=== PATIENT | female | born 1945 | race Caucasian/White ===

== ENCOUNTER 2019-03-03 10:22 | Inpatient (IN) | payer OTHER ==
[2019-03-03] VITALS (15 sets, daily range): BP systolic 44–249; BP diastolic 35–231; PULSE 0–99; RESP 0–29; Ht 154.9 cm; Wt 54.0 kg
[~2019-03-03] VITALS: Ht 154.9 cm; Wt 54.0 kg
[~2019-03-03 10:22] MED LIST: AMIODARONE 150 MG INJ ONE; CA CHLORIDE 10% 10 ML SYRINGE ONE; DOPamine-D5W 1.6 MG/ML 250 ML ONE; EPINEPHrine 0.1 MG/ML SYG ONE; POTASSIUM CHLORIDE 20 MEQ/SW 100 ML IVPB ONE
[2019-03-03] MEDS ORDERED: CEFEPIME 2GM/50 ML (PMX) 50 ML IVPB STA (10:24)
[2019-03-03] MEDS ORDERED: VANCOMYCIN 1 GM (PMX) 250 ML IVPB STA (10:24)
[2019-03-03] MEDS ORDERED: PROPOFOL 100 ML IV ONE (10:30)
[2019-03-03] MEDS ORDERED: FENTAnyl (DRIP) 1000 mcg/100mL 100 ML IV ONE (10:30)
[2019-03-03] MEDS ORDERED: NORepinephrine 8MG/250 ML (PMX 250 ML IV STA ×2 (10:31→11:48)
[2019-03-03] MEDS ORDERED: BUPR100T7 PO (10:47)
[2019-03-03] MEDS ORDERED: SODIUM CHLORIDE 0.9% 1L BAG IV* STA (10:47)
[2019-03-03] MEDS ORDERED: INSU100I12 SQ ×2 (10:48→11:12)
[2019-03-03] MEDS ORDERED: OMEP20CA16 PO (10:49)
[2019-03-03] MEDS ORDERED: LANT3I SC (10:49)
[2019-03-03] MEDS ORDERED: CHOL100062 PO (10:50)
[2019-03-03] MEDS ORDERED: VECURONIUM 100 MG in DEXTROSE 5% 100 ML IV ONE (10:50)
[2019-03-03] MEDS ORDERED: SODIUM CHLORIDE 0.9% 500 ML BAG IV* STA (10:50)
[2019-03-03] MEDS ORDERED: SODI1TAB2 PO (10:51)
[2019-03-03] MEDS ORDERED: SERT50TA6 PO (10:54)
[2019-03-03] MEDS ORDERED: METO5TAB2 PO ×2 (10:54)
[2019-03-03] MEDS ORDERED: GABA300C16 PO (10:54)
[2019-03-03] MEDS ORDERED: ASCO500C7 PO (10:55)
[2019-03-03] MEDS ORDERED: FER325 PO (10:55)
[2019-03-03] MEDS ORDERED: NA BICARBONATE 8.4% 50 ML SYG IV ONE ×2 (11:00)
[2019-03-03] MEDS ORDERED: AMIODARONE 900 MG in DEXTROSE 5% 482 ML IV SCH ×4 (11:00)
[2019-03-03] MEDS ORDERED: DOPamine-D5W 1.6 MG/ML 250 ML IV SCH (11:00)
[2019-03-03] MEDS ORDERED: VECURONIUM 10 MG VIAL IV ONE (11:00)
[2019-03-03] MEDS ORDERED: AMIODARONE 150MG/D5W BOLUS 100 ML IV ONE (11:00)
[2019-03-03] MEDS ORDERED: CALC-834 PO (11:01)
[2019-03-03] MEDS ORDERED: MULTI PO (11:01)
[2019-03-03] MEDS ORDERED: NS + KCL 40 MEQ 1,000 ML IV SCH (11:31)
[2019-03-03] MEDS ORDERED: D10/0.45% NACL + KCL 40 MEQ 1,000 ML IV SCH (11:31)
[2019-03-03] MEDS ORDERED: DEXTROSE 10%/0.45% NACL 1,000 ML IV SCH (11:31)
[2019-03-03] MEDS ORDERED: INSULIN REGULAR, HUMAN 100 UNIT/1 ML 3ML VIAL IVP STA (11:31)
[2019-03-03] MEDS ORDERED: NS + KCL 30 MEQ 1,000 ML IV SCH (11:31)
[2019-03-03] MEDS ORDERED: SOD CHLORIDE 0.9% 1,000 ML IV SCH (11:31)
[2019-03-03] MEDS ORDERED: ALBUTEROL 0.5% (NEB) 2.5 MG/0.5 ML AMP INH STA (11:31)
[2019-03-03] MEDS ORDERED: D10/0.45% NACL + KCL 30 MEQ 1,000 ML IV SCH (11:31)
[2019-03-03] MEDS ORDERED: LACTATED RINGER'S 540 ML IV ONE (12:00)
[2019-03-03] MEDS ORDERED: ASPIRIN 300 MG SUPP PR ONE (12:00)
[2019-03-03] MEDS ORDERED: INSULIN REGULAR, HUMAN 100 UNIT in SOD CHLORIDE 0.9% 100 ML IV SCH ×2 (12:00)
[2019-03-03] MEDS ORDERED: DEXTROSE 50% 50 ML SYRINGE IV PRN ×3 (12:00)
--- NOTE | 2019-03-03 12:39 | EN ---
Date/Time of Note Date/Time of Note DATE: 03/03/19 TIME: 12:38 Event Note Medicine Medicine Event Note patient has lost pulse 3 times. ROSC. Currently intubated on max dose dopamine and levophed. Her daughter is at bedside and HCP her son is on the phone. They state she previously had a DNR. We agreed we will not do CPR again. We will decide in coming hours about palliative extubation HAILEY KAY MD Mar 03, 2019 12:39
--- NOTE | 2019-03-03 14:39 | ERD ---
ER Documentation Chief Complaint Chief Complaint ROSC bib RA [id number] HPI Patient is a 73-year-old female with diabetes who presents in cardiac arrest. Please note the history and physical exam is limited as the patient is intubated and in full cardiac arrest at this point. The patient was brought in by ambulance. She had a cardiac arrest in the field and was down for an unknown amount of time. She had CPR performed prior to inside sales recruiter arrival. Paramedics worked on her for approximately 24 minutes and the patient was given epinephrine and bicarbonate. The patient lost pulses upon arrival to the emergency department. Upon review of old medical records this is the patient's first visit to the emergency department. ROS All systems reviewed and are negative except as per history of present illness. Medications Home Meds Reported Medications Insulin Lispro (Humalog Kwikpen U-100) 100 Unit/1 Ml Insuln.pen, 6 UNIT SQ BEFORE MEALS, EA BREAKFAST,LUNCH,DINNER. 03/03/19 Multivitamins* (Theragran*) 1 Tab Tab, 1 TAB PO DAILY, TAB 03/03/19 Calcium Carbonate/Vitamin D3 (Calcium 600 + Vit D 400 Tablet) 1 Each Tablet, 1 EACH PO BID, TAB 03/03/19 Ferrous Sulfate* (Ferrous Sulfate*) 325 Mg Tabec, 325 MG PO TID, TAB 03/03/19 Ascorbic Acid* (Vitamin C*) 500 Mg Capsule.sa, 500 MG PO DAILY, CAP 03/03/19 Sertraline Hcl* (Sertraline Hcl*) 50 Mg Tablet, 50 MG PO DAILY, #30 TAB 03/03/19 Gabapentin* (Gabapentin*) 300 Mg Capsule, 300 MG PO BID, #60 CAP 03/03/19 Metoclopramide Hcl* (Metoclopramide Hcl*) 5 Mg Tablet, 10 MG PO BEFOR LUNCH AND DINN, TAB 03/03/19 Metoclopramide Hcl* (Metoclopramide Hcl*) 5 Mg Tablet, 5 MG PO AC BREAKFAST BEDTIME PRN for NAUSEA AND OR VOMITING, TAB 03/03/19 Sodium Chloride* (Sodium Chloride*) 1 Gm Tablet, 1 GM PO TID, TAB 03/03/19 Cholecalciferol* (Vitamin D3*) 1,000 Unit Tablet, 2000 UNIT PO DAILY, TAB 03/03/19 Omeprazole* (Omeprazole*) 20 Mg Capsule.dr, 20 MG PO BID, #60 CAP 03/03/19 Insulin Glargine* (Lantus*) 100 Unit/Ml Soln, 20 UNIT SC Q24H, #1 VIAL 03/03/19 Insulin Lispro (Humalog Kwikpen U-100) 100 Unit/1 Ml Insuln.pen, UNIT SQ BEFORE MEALS for SLIDING SCALE, EA IF BS 200-250=1 UNIT, 251-300=2 UNITS,301-350=3 UNITS,351-400=4 UNITS.THIS IS IN ADDITION TO HER PRE-MEAL SCHEDULED INSULIN LISPRO THAT SHE GETS WITH EACH MEAL.THIS SLIDING SCALE IS ONLY GIVENIF SHE MEETS THE CRITERIA ABOVE. 03/03/19 Bupropion Hcl* (Bupropion Hcl SR*) 100 Mg Tablet.sa, 200 MG PO BID, TAB.SA 03/03/19 Allergies Allergies: Coded Allergies: Sulfa (Sulfonamide Antibiotics) (Verified Allergy, Unknown, 03/03/19) ciprofloxacin (Verified Allergy, Unknown, 03/03/19) codeine (Verified Allergy, Unknown, 03/03/19) latex (Verified Allergy, Unknown, 03/03/19) lorazepam (Verified Allergy, Unknown, 03/03/19) strawberry (Verified Allergy, Unknown, 03/03/19) PMhx/Soc History of Surgery: Yes (hysterectomy, bilateral foot surgery, right hip fx) Anesthesia Reaction: No Hx Neurological Disorder: Yes (dementia) Hx Respiratory Disorders: No Hx Cardiac Disorders: No Hx Psychiatric Problems: Yes (depression) Hx Miscellaneous Medical Probl: No Smoking Status: Never smoker FmHx Unable to obtain Physical Exam Vitals Vital Signs Date Temp Pulse Resp B/P (MAP) Pulse Ox O2 O2 Flow FiO2 Time Delivery Rate 03/03/19 123 20 100 100 10:57 03/03/19 99.2 130 22 148/79 100 Mechanical 10:25 (102) Ventilator Physical Exam Const: Critical Head: Atraumatic Eyes: Pupils are fixed and dilated ENT: Normal External Ears, Nose and Mouth. Neck: Full range of motion. No meningismus. Resp: Being bagged by respiratory therapy Cardio: Receiving high-quality CPR Abd: Soft, non tender, non distended. Normal bowel sounds Skin: Pale skin Back: No midline or flank tenderness Ext: No cyanosis, or edema Neur: GCS 3 Result Diagram: 03/03/19 1049 03/03/19 1049 Results 24 hrs Laboratory Tests Test 03/03/19 10:24 03/03/19 10:28 03/03/19 10:49 03/03/19 10:51 Blood Gas Blood arterial Specimen Source Arterial Blood 03/03/2019 11:26:46 Date Drawn AM Arterial Blood pH 6.832 (Temp corrected) Arterial Blood 31.6 mmhg pCO2 (Temp correct) Arterial Blood 412.8 mmHG pO2 (Temp corrected) Arterial Blood 5.2 mmol/L HCO3 Arterial Blood -27.5 mmol/L Base Excess Arterial Blood 99.1 mmHG Oxygen Saturation Alexander Test N/A Arterial Blood Right Brachial Gas Puncture Site Arterial 0.3 % Blood Carboxyhemo globin Arterial Blood 0 % Methemoglobin Blood Gas A-a O2 268.6 mmHg Differential Oxyhemoglobin 98.8 % Percent Blood Gas 37.0 C Temperature Blood Gas 20.0 Respiration Rate Blood Gas Actual 20 Respiration Rate Blood Gas VENT - AC Modality FiO2 100.0 % Blood Gas Tidal 450.0 mL Volume Blood Gas Low 5.0 cmH2O PEEP Setting Blood Gas Critical Value Read Back Blood Gas Inge Notified Whom Blood Gas 03/03/2019 11:35:20 Notified Time AM Bedside Glucose > 595 mg/dL White Blood Count 6.5 10^3/ul Red Blood Count 3.11 10^6/ul Hemoglobin 9.1 g/dl Hematocrit 30.8 % Mean Corpuscular 99.0 fl Volume Mean Corpuscular 29.3 pg Hemoglobin Mean Corpuscular 29.5 g/dl Hemoglobin Concen t Red Cell 14.1 % Distribution Width Platelet Count 125 10^3/UL Mean Platelet 11.8 fl Volume Immature 10.700 % Granulocytes % Neutrophils % % Segmented 40 % Neutrophils % (Manual) Lymphocytes % % Lymphocytes % 47 % (Manual) Monocytes % % Monocytes % 3 % (Manual) Eosinophils % % Basophils % % Metamyelocytes % 1 % (manual) Myelocytes % 9 % (Manual) Nucleated Red 0.3 /100WBC Blood Cells % Immature 0.690 10^3/ul Granulocytes # Neutrophils # 10^3/ul Lymphocytes 3.0 10^3/ul (Manual) Lymphocytes # 10^3/ul Monocytes # 10^3/ul Monocytes # 0.1 10^3/ul (Manual) Eosinophils # 10^3/ul Basophils # 10^3/ul Metamyelocytes # 0.0 10^3/ul Myelocytes # 0.5 10^3/ul Nucleated Red 10^3/ul Blood Cells # Platelet Estimate DECREASED Anisocytosis 1+ Microcytosis 1+ Prothrombin Time 17.4 Sec Prothrombin Time 1.4 Ratio INR International 1.41 Normalized Ratio Activated 76.1 Sec Partial Thrombopl ast Time Sodium Level 132 mmol/L Potassium Level 9.3 mmol/L Chloride Level 88 mmol/L Carbon Dioxide 10 mmol/L Level Anion Gap 34 Blood Urea 36 mg/dl Nitrogen Creatinine 2.33 mg/dl Est Glomerular mL/min Filtrat Rate mL/min Glucose Level 1076 mg/dl Hemoglobin A1c 9.3 % Calcium Level 10.4 mg/dl Phosphorus Level 14.5 mg/dl Magnesium Level 2.9 mg/dl Total Bilirubin 0.3 mg/dl Direct Bilirubin 0.00 mg/dl Indirect 0.3 mg/dl Bilirubin Aspartate Amino 662 IU/L Transf (AST/SGOT) Alanine 563 IU/L Aminotransferase (ALT/SGPT) Alkaline 61 IU/L Phosphatase Troponin I 0.594 ng/ml Total Protein 5.1 g/dl Albumin 3.3 g/dl Globulin 1.80 g/dl Albumin/Globulin 1.83 Ratio Lipase 703 U/L Ethyl Alcohol < 10.0 mg/dl Level POC Venous 10.0 mmol/L Lactate Test 03/03/19 11:00 Urine Color YELLOW Urine Clarity CLEAR Urine pH 5.0 Urine Specific 1.020 [place] Urine Ketones 1+ mg/dL Urine Nitrite NEGATIVE mg/dL Urine Bilirubin NEGATIVE mg/dL Urine NEGATIVE mg/dL Urobilinogen Urine Leukocyte NEGATIVE Jaimee/ul Esterase Urine Hemoglobin NEGATIVE mg/dL Urine Glucose 3+ mg/dL Urine Total NEGATIVE mg/dl Protein Urine Opiates Negative Screen Urine Negative Barbiturates Urine Negative Amphetamines Screen Urine Negative Benzodiazepines Screen Urine Cocaine Negative Screen Urine Negative Cannabinoids Current Medications Medications Dose Sig/Bharat Start Time Status Last (Trade) Ordered Route PRN Stop Time Admin Dose Reason Admin Cefepime HCl 50 ml @ ONCE STAT 03/03/19 DC 03/03/19 100 mls/hr IVPB 10:24 03/03/19 11:00 10:53 Vancomycin 250 ml @ ONCE STAT 03/03/19 DC 03/03/19 HCl 125 mls/hr IVPB 10:24 03/03/19 11:27 12:23 Propofol 100 ml @ per protocol 03/03/19 1.8 mls/hr ONCE IV 10:30 03/05/19 18:03 Fentanyl 100 ml @ PER PROTOCOL 03/03/19 2.5 mls/hr ONCE IV 10:30 03/05/19 02:29 250 ml @ ONCE STAT 03/03/19 DC Norepinephrin 7.5 mls/hr IV 10:31 03/03/19 e 10:49 Amiodarone 100 ml @ ONCE ONCE 03/03/19 DC 03/03/19 HCl 600 mls/hr IV 11:00 03/03/19 10:50 11:09 Amiodarone 500 ml @ 0 Q0M IV 03/03/19 03/03/19 HCl 900 mls/hr 11:00 12:01 mg/Dextrose Amiodarone 500 ml @ 0 Q0M IV 03/03/19 HCl 900 mls/hr 11:00 mg/Dextrose Sodium 50 ml ONCE ONCE 03/03/19 DC 03/03/19 Bicarbonate IV 11:00 03/03/19 10:48 (Na Bicarb 11:01 8.4% Syg) Sodium 50 ml ONCE ONCE 03/03/19 DC 03/03/19 Bicarbonate IV 11:00 03/03/19 10:22 (Na Bicarb 11:01 8.4% Syg) Dopamine 250 ml @ TITRATE IV 03/03/19 03/03/19 HCl/ 4.5 mls/hr 11:00 11:00 Dextrose Sodium 1,800 ml BOLUS OVER 2 03/03/19 DC 03/03/19 Chloride HOURS STAT 10:47 03/03/19 11:00 (NS) IV* 10:50 Sodium 500 ml ONCE STAT 03/03/19 DC 03/03/19 Chloride IV* 10:50 03/03/19 10:22 (NS) 10:52 Vecuronium 6 mg ONCE ONCE 03/03/19 DC [place] IV 11:00 03/03/19 ([place]) 11:01 Vecuronium 100 ml @ Q24H ONCE 03/03/19 [place] 100 3.24 mls/hr IV 10:50 03/04/19 mg/ Dextrose 10:49 Procedures/MDM EKG #1 read by me: Rate/Rhythm: Wide-complex tachycardia Intervals: Normal Impression: Wide-complex rhythm EKG #2 read by me: Rate/Rhythm: Sinus rhythm Intervals: Normal Impression: Sinus rhythm with peaked T waves Chest x-ray read by radiology. Central Line Placement by me: Patient consented, sterilely draped, full prep, gown, glove, mask, time out performed. Anesthesia: 1% lidocaine locally Location: Right femoral Device: Multiple lumen Technique: Seldinger technique. Secured with suture. Results: Venous return from all ports with easy saline flush. No complications. Guide wire retrieved and disposed of. ED Ultrasound: Central line placed by me using concurrent ultrasound guidance. Real time image archived in the medical record confirms vascular anatomy. Patient is a 73-year-old female who presents in cardiac arrest. She was found to have diabetic ketoacidosis with a sugar of greater than 1000 and acidosis. She was also found to have severe hyperkalemia with potassium of 9.3 which I believe is likely the reason for her cardiac arrest. She was treated with bicarbonate, albuterol, calcium, and insulin. She was placed on insulin drip with DKA protocol. She was given aspirin per rectum and she had a positive troponin. Her lactic acid was greater than 10 which I believe is related to the cardiac arrest. I doubt sepsis or septic shock at this time. The patient was given broad-spectrum antibiotics and fluids however in case was possible aspiration. The patient was admitted to the care of Dr. Clarke from the panel team. Patient has a poor prognosis. I spoke with the family and they have informed me that the patient is a DNR. The patient will be admitted to the intensive care unit. Critical Care: Time: 50 minutes excluding all billable procedures. Treatments/Evaluations: Close monitoring and treatment of unstable vital signs, cardiorespiratory, and neurologic status, while maintaining tight balance of fluid, respiratory, and cardiac interventions. Departure Diagnosis: Primary Impression: Cardiac arrest Additional Impressions: DKA (diabetic ketoacidoses) Diabetes mellitus type: type 1 Diabetes mellitus complication detail: with coma Qualified Codes: E10.11 - Type 1 diabetes mellitus with ketoacidosis with coma Acidosis Hyperkalemia Non-STEMI (non-ST elevated myocardial infarction) Condition: Critical HODA HUNTER MD Mar 03, 2019 14:39
--- NOTE | 2019-03-03 14:45 | CONS ---
Assessment/Plan Assessment/Plan Assessment/Plan (Daily) IMP: 1. s/p cardiopulmonary asystolic arrest--likely hyperkalemia induced. 2. Shock--s/p cardiac arrest 3. Vent Dependence / #1 4. LUCI 5. Ischemic Hepatopathy 6. HHS/DKA 7. Pancreatitis 8. Ischemic Hepatopathy 9. Demand Ischemia/Type II NSTEMI 10. Encephalopathy RECS: 1. I had a long discussion with family. All members, including her daughter, expressed that she never would have wanted to be on life support and that what has already happened to her is against her wishes. They expressed interest in transitioning to full comfort measures. 2. Will initiate morphine gtt 3. Thereafter, will stop pressors/drips and extubate. 4. DNR Nursing and PMD informed. Consultation Date/Type/Reason Admit Date/Time Mar 03, 2019 at 11:04 Date of Consultation: Mar 03, 2019 Type of Consult Pulm/CCM Date/Time of Note DATE: 03/03/19 TIME: 14:31 Hx of Present Illness Briefly, this is a 73-year-old female with history of poorly-controlled DM, resident of a SNF for over 6 years with course complicated by prior infections and falls, who was found in cardiac arrest at her SNF earlier today with CPR s/p ROSC/intubation with transfer to the [facility], found to have a K+ of 9.2. Course complicated by afib with RVR requiring amiodarone and shock requiring pressors. She is now intubated, minimally responsive with family at the bedside. Subjective hx not possible: pt non-verbal Past Medical History see HPI Home Meds Reported Medications Insulin Lispro (Humalog Kwikpen U-100) 100 Unit/1 Ml Insuln.pen, 6 UNIT SQ BEFORE MEALS, EA BREAKFAST,LUNCH,DINNER. 03/03/19 Multivitamins* (Theragran*) 1 Tab Tab, 1 TAB PO DAILY, TAB 03/03/19 Calcium Carbonate/Vitamin D3 (Calcium 600 + Vit D 400 Tablet) 1 Each Tablet, 1 EACH PO BID, TAB 03/03/19 Ferrous Sulfate* (Ferrous Sulfate*) 325 Mg Tabec, 325 MG PO TID, TAB 03/03/19 Ascorbic Acid* (Vitamin C*) 500 Mg Capsule.sa, 500 MG PO DAILY, CAP 03/03/19 Sertraline Hcl* (Sertraline Hcl*) 50 Mg Tablet, 50 MG PO DAILY, #30 TAB 03/03/19 Gabapentin* (Gabapentin*) 300 Mg Capsule, 300 MG PO BID, #60 CAP 03/03/19 Metoclopramide Hcl* (Metoclopramide Hcl*) 5 Mg Tablet, 10 MG PO BEFOR LUNCH AND DINN, TAB 03/03/19 Metoclopramide Hcl* (Metoclopramide Hcl*) 5 Mg Tablet, 5 MG PO AC BREAKFAST BEDTIME PRN for NAUSEA AND OR VOMITING, TAB 03/03/19 Sodium Chloride* (Sodium Chloride*) 1 Gm Tablet, 1 GM PO TID, TAB 03/03/19 Cholecalciferol* (Vitamin D3*) 1,000 Unit Tablet, 2000 UNIT PO DAILY, TAB 03/03/19 Omeprazole* (Omeprazole*) 20 Mg Capsule.dr, 20 MG PO BID, #60 CAP 03/03/19 Insulin Glargine* (Lantus*) 100 Unit/Ml Soln, 20 UNIT SC Q24H, #1 VIAL 03/03/19 Insulin Lispro (Humalog Kwikpen U-100) 100 Unit/1 Ml Insuln.pen, UNIT SQ BEFORE MEALS for SLIDING SCALE, EA IF BS 200-250=1 UNIT, 251-300=2 UNITS,301-350=3 UNITS,351-400=4 UNITS.THIS IS IN ADDITION TO HER PRE-MEAL SCHEDULED INSULIN LISPRO THAT SHE GETS WITH EACH MEAL.THIS SLIDING SCALE IS ONLY GIVENIF SHE MEETS THE CRITERIA ABOVE. 03/03/19 Bupropion Hcl* (Bupropion Hcl SR*) 100 Mg Tablet.sa, 200 MG PO BID, TAB.SA 03/03/19 Medications Current Medications Propofol 100 ml @ 1.8 mls/hr per protocol ONCE IV ; Start 03/03/19 at 10:30; Stop 03/05/19 at 18:03 Fentanyl 100 ml @ 2.5 mls/hr PER PROTOCOL ONCE IV ; Start 03/03/19 at 10:30; Stop 03/05/19 at 02:29 Amiodarone HCl 900 mg/Dextrose 500 ml @ 0 mls/hr Q0M IV Last administered on 03/03/19at 12:01; Admin Dose 33.3 MLS/HR; Start 03/03/19 at 11:00 Amiodarone HCl 900 mg/Dextrose 500 ml @ 0 mls/hr Q0M IV ; Start 03/03/19 at 11:00 Dopamine HCl/ Dextrose 250 ml @ 4.5 mls/hr TITRATE IV Last administered on 03/03/19at 11:00; Admin Dose 45 MLS/HR; Start 03/03/19 at 11:00 Vecuronium [place] 100 mg/ Dextrose 100 ml @ 3.24 mls/hr Q24H ONCE IV ; Start 03/03/19 at 10:50; Stop 03/04/19 at 10:49 Dextrose (D50w Syringe) ONCE PRN IV DECREASED GLUCOSE; Start 03/03/19 at 12:00 Potassium Chloride/Sodium Chloride 1,000 ml @ 0 mls/hr Q0M IV ; Start 03/03/19 at 11:31 Potassium Chloride/Dextrose/ Sod Cl 1,000 ml @ 0 mls/hr Q0M IV ; Start 03/03/19 at 11:31 Potassium Chloride/Sodium Chloride 1,000 ml @ 0 mls/hr Q0M IV ; Start 03/03/19 at 11:31 Potassium Chloride/Dextrose/ Sod Cl 1,000 ml @ 0 mls/hr Q0M IV ; Start 03/03/19 at 11:31 Sodium Chloride 1,000 ml @ 0 mls/hr Q0M IV Last administered on 03/03/19at 12:41; Admin Dose 250 MLS/HR; Start 03/03/19 at 11:31 Dextrose/Sodium Chloride 1,000 ml @ 0 mls/hr Q0M IV ; Start 03/03/19 at 11:31 Insulin Human Regular 100 unit/ Sodium Chloride 101 ml @ 5.45 mls/hr ER DKA PROTOCOL IV Last administered on 03/03/19at 12:50; Admin Dose 5.45 MLS/HR; Start 03/03/19 at 12:00 Miscellaneous Information (* Miscellaneous Pharmacy Order) HYPOGLYCEMIA TREATMENT HYPOGLYCEM PROTOCOL PRN XX .HYPOGLYCEMIA PROTOCOL; Start 03/03/19 at 12:00 Dextrose (D50w Syringe) 50 ml Q15M PRN IV .DECREASED GLUCOSE; Start 03/03/19 at 12:00 Dextrose (D50w Syringe) 25 ml Q15M PRN IV .DECREASED GLUCOSE; Start 03/03/19 at 12:00 Norepinephrine 250 ml @ 7.5 mls/hr ONCE STAT IV Last administered on 03/03/19at 11:55; Admin Dose 18.75 MLS/HR; Start 03/03/19 at 11:48; Stop 03/04/19 at 21:07 Allergies: Coded Allergies: Sulfa (Sulfonamide Antibiotics) (Verified Allergy, Unknown, 03/03/19) ciprofloxacin (Verified Allergy, Unknown, 03/03/19) codeine (Verified Allergy, Unknown, 03/03/19) latex (Verified Allergy, Unknown, 03/03/19) lorazepam (Verified Allergy, Unknown, 03/03/19) strawberry (Verified Allergy, Unknown, 03/03/19) Past Surgical History Unknown Social History Alcohol Use: none Smoking Status: Never smoker Drug Use: none Exam/Review of Systems Exam Vitals Vital Signs Date Temp Pulse Resp B/P (MAP) Pulse Ox O2 O2 Flow FiO2 Time Delivery Rate 03/03/19 87 20 128/101 90 Mechanical 14:15 (110) Ventilator 03/03/19 100 10:57 03/03/19 99.2 10:25 Constitutional: non-verbal Head: normocephalic, atraumatic Eyes: nl conjunctiva, nl sclera, PERRL ENMT: mucosa pink and moist, intubated Neck: supple, non-tender, jvd Respiratory: clear to auscultation, normal air movement Cardiovascular: regular rate and rhythm, irregular rhythm Gastrointestinal: soft, nl liver, spleen, non-tender Musculoskeletal: nl extremities to inspection Extremities: normal pulses Neurological: unresponsive Results Result Diagram: 03/03/19 1049 03/03/19 1049 Results 24hrs Laboratory Tests Test 03/03/19 10:24 03/03/19 10:28 03/03/19 10:49 03/03/19 10:51 Blood Gas Specimen Blood arterial Source Arterial Blood 03/03/2019 11:26:46 Date Drawn AM Arterial Blood pH 6.832 *L (Temp corrected) Arterial Blood 31.6 L pCO2 (Temp correct) Arterial Blood pO2 412.8 H (Temp corrected) Arterial Blood 5.2 *L HCO3 Arterial Blood -27.5 L Base Excess Arterial Blood 99.1 Oxygen Saturation Alexander Test N/A Arterial Blood Gas Right Brachial Puncture Site Arterial 0.3 Blood Carboxyhemog lobin Arterial Blood 0 Methemoglobin Blood Gas A-a O2 268.6 H Differential Oxyhemoglobin 98.8 Percent Blood Gas 37.0 Temperature Blood Gas 20.0 Respiration Rate Blood Gas Actual 20 Respiration Rate Blood Gas Modality VENT - AC FiO2 100.0 Blood Gas Tidal 450.0 Volume Blood Gas Low PEEP 5.0 Setting Blood Gas Critical Value Read Back Blood Gas Notified Inge Quintanilla Blood Gas Notified 03/03/2019 11:35:20 Time AM Bedside Glucose > 595 *H White Blood Count 6.5 Red Blood Count 3.11 L Hemoglobin 9.1 L Hematocrit 30.8 L Mean Corpuscular 99.0 Volume Mean Corpuscular 29.3 Hemoglobin Mean Corpuscular 29.5 L Hemoglobin Concent Red Cell 14.1 Distribution Width Platelet Count 125 L Mean Platelet 11.8 H Volume Immature 10.700 H Granulocytes % Neutrophils % Segmented 40 Neutrophils % (Manual) Lymphocytes % Lymphocytes % 47 (Manual) Monocytes % Monocytes % 3 (Manual) Eosinophils % Basophils % Metamyelocytes % 1 H (manual) Myelocytes % 9 H (Manual) Nucleated Red 0.3 H Blood Cells % Immature 0.690 H Granulocytes # Neutrophils # Lymphocytes 3.0 H (Manual) Lymphocytes # Monocytes # Monocytes # 0.1 L (Manual) Eosinophils # Basophils # Metamyelocytes # 0.0 Myelocytes # 0.5 H Nucleated Red Blood Cells # Platelet Estimate DECREASED Anisocytosis 1+ Microcytosis 1+ Prothrombin Time 17.4 H Prothrombin Time 1.4 Ratio INR International 1.41 Normalized Ratio Activated 76.1 *H Partial Thrombopla st Time Sodium Level 132 L Potassium Level 9.3 *H Chloride Level 88 L Carbon Dioxide 10 L Level Anion Gap 34 H Blood Urea 36 H Nitrogen Creatinine 2.33 H Est Glomerular Filtrat Rate mL/min Glucose Level 1076 *H Hemoglobin A1c 9.3 H Calcium Level 10.4 H Phosphorus Level 14.5 H Magnesium Level 2.9 H Total Bilirubin 0.3 Direct Bilirubin 0.00 Indirect Bilirubin 0.3 Aspartate Amino 662 H Transf (AST/SGOT) Alanine 563 H Aminotransferase ( ALT/SGPT) Alkaline 61 Phosphatase Troponin I 0.594 *H Total Protein 5.1 L Albumin 3.3 Globulin 1.80 Albumin/Globulin 1.83 Ratio Lipase 703 H Ethyl Alcohol < 10.0 H Level POC Venous Lactate 10.0 *H Test 03/03/19 11:00 03/03/19 12:14 03/03/19 14:09 Urine Color YELLOW Urine Clarity CLEAR Urine pH 5.0 Urine Specific 1.020 [place] Urine Ketones 1+ H Urine Nitrite NEGATIVE Urine Bilirubin NEGATIVE Urine Urobilinogen NEGATIVE Urine Leukocyte NEGATIVE Esterase Urine Hemoglobin NEGATIVE Urine Glucose 3+ H Urine Total NEGATIVE Protein Urine Opiates Negative Screen Urine Barbiturates Negative Urine Amphetamines Negative Screen Urine Negative Benzodiazepines Screen Urine Cocaine Negative Screen Urine Cannabinoids Negative Bedside Glucose > 595 *H > 595 *H Medications Medication Current Medications Propofol 100 ml @ 1.8 mls/hr per protocol ONCE IV ; Start 03/03/19 at 10:30; Stop 03/05/19 at 18:03 Fentanyl 100 ml @ 2.5 mls/hr PER PROTOCOL ONCE IV ; Start 03/03/19 at 10:30; Stop 03/05/19 at 02:29 Amiodarone HCl 900 mg/Dextrose 500 ml @ 0 mls/hr Q0M IV Last administered on 03/03/19at 12:01; Admin Dose 33.3 MLS/HR; Start 03/03/19 at 11:00 Amiodarone HCl 900 mg/Dextrose 500 ml @ 0 mls/hr Q0M IV ; Start 03/03/19 at 11:00 Dopamine HCl/ Dextrose 250 ml @ 4.5 mls/hr TITRATE IV Last administered on 03/03/19at 11:00; Admin Dose 45 MLS/HR; Start 03/03/19 at 11:00 Vecuronium [place] 100 mg/ Dextrose 100 ml @ 3.24 mls/hr Q24H ONCE IV ; Start 03/03/19 at 10:50; Stop 03/04/19 at 10:49 Dextrose (D50w Syringe) ONCE PRN IV DECREASED GLUCOSE; Start 03/03/19 at 12:00 Potassium Chloride/Sodium Chloride 1,000 ml @ 0 mls/hr Q0M IV ; Start 03/03/19 at 11:31 Potassium Chloride/Dextrose/ Sod Cl 1,000 ml @ 0 mls/hr Q0M IV ; Start 03/03/19 at 11:31 Potassium Chloride/Sodium Chloride 1,000 ml @ 0 mls/hr Q0M IV ; Start 03/03/19 at 11:31 Potassium Chloride/Dextrose/ Sod Cl 1,000 ml @ 0 mls/hr Q0M IV ; Start 03/03/19 at 11:31 Sodium Chloride 1,000 ml @ 0 mls/hr Q0M IV Last administered on 03/03/19at 12:41; Admin Dose 250 MLS/HR; Start 03/03/19 at 11:31 Dextrose/Sodium Chloride 1,000 ml @ 0 mls/hr Q0M IV ; Start 03/03/19 at 11:31 Insulin Human Regular 100 unit/ Sodium Chloride 101 ml @ 5.45 mls/hr ER DKA PROTOCOL IV Last administered on 03/03/19at 12:50; Admin Dose 5.45 MLS/HR; Start 03/03/19 at 12:00 Miscellaneous Information (* Miscellaneous Pharmacy Order) HYPOGLYCEMIA TREATMENT HYPOGLYCEM PROTOCOL PRN XX .HYPOGLYCEMIA PROTOCOL; Start 03/03/19 at 12:00 Dextrose (D50w Syringe) 50 ml Q15M PRN IV .DECREASED GLUCOSE; Start 03/03/19 at 12:00 Dextrose (D50w Syringe) 25 ml Q15M PRN IV .DECREASED GLUCOSE; Start 03/03/19 at 12:00 Norepinephrine 250 ml @ 7.5 mls/hr ONCE STAT IV Last administered on 03/03/19at 11:55; Admin Dose 18.75 MLS/HR; Start 03/03/19 at 11:48; Stop 03/04/19 at 21:07 DINH ROY MD Mar 03, 2019 14:45
[2019-03-03] MEDS ORDERED: HYDROmorphONE 2 MG/ML SYG IV STA (14:46)
[2019-03-03] MEDS ORDERED: morphine (DRIP) 100 MG/100 ML 100 ML IV SCH (15:00)
[2019-03-03] MEDS ORDERED: LORAZEPAM 2 MG INJ IV PRN (15:00)
--- NOTE | 2019-03-03 15:49 | HP ---
Date/Time of Note Date/Time of Note DATE: 03/03/19 TIME: 15:46 Assessment/Plan VTE Prophylaxis Pharmacological prophylaxis: heparin Lines/Catheters IV Catheter Type (from Nrsg): Central Line Central line still needed: Yes Urinary Cath still in place: Yes Reason Cath still needed: urinary retention Assessment/Plan Hospital Course 73 yo female with DM who presented with cardiac arrest, now s/p ACLS with ROSC. In shock now, with apparent severe anoxic brain injury - Transition to comfort care per goals of care discussion with family and her previously stated wishes - Tim drip - Palliaitve extubation Result Diagram: 03/03/19 1049 03/03/19 1352 Results 24hrs Laboratory Tests Test 03/03/19 10:24 03/03/19 10:28 03/03/19 10:49 03/03/19 10:51 Blood Gas Specimen Blood arterial Source Arterial Blood 03/03/2019 11:26:46 Date Drawn AM Arterial Blood pH 6.832 *L (Temp corrected) Arterial Blood 31.6 L pCO2 (Temp correct) Arterial Blood pO2 412.8 H (Temp corrected) Arterial Blood 5.2 *L HCO3 Arterial Blood -27.5 L Base Excess Arterial Blood 99.1 Oxygen Saturation Alexander Test N/A Arterial Blood Gas Right Brachial Puncture Site Arterial 0.3 Blood Carboxyhemog lobin Arterial Blood 0 Methemoglobin Blood Gas A-a O2 268.6 H Differential Oxyhemoglobin 98.8 Percent Blood Gas 37.0 Temperature Blood Gas 20.0 Respiration Rate Blood Gas Actual 20 Respiration Rate Blood Gas Modality VENT - AC FiO2 100.0 Blood Gas Tidal 450.0 Volume Blood Gas Low PEEP 5.0 Setting Blood Gas Critical Value Read Back Blood Gas Notified Inge Quintanilla Blood Gas Notified 03/03/2019 11:35:20 Time AM Bedside Glucose > 595 *H White Blood Count 6.5 Red Blood Count 3.11 L Hemoglobin 9.1 L Hematocrit 30.8 L Mean Corpuscular 99.0 Volume Mean Corpuscular 29.3 Hemoglobin Mean Corpuscular 29.5 L Hemoglobin Concent Red Cell 14.1 Distribution Width Platelet Count 125 L Mean Platelet 11.8 H Volume Immature 10.700 H Granulocytes % Neutrophils % Segmented 40 Neutrophils % (Manual) Lymphocytes % Lymphocytes % 47 (Manual) Monocytes % Monocytes % 3 (Manual) Eosinophils % Basophils % Metamyelocytes % 1 H (manual) Myelocytes % 9 H (Manual) Nucleated Red 0.3 H Blood Cells % Immature 0.690 H Granulocytes # Neutrophils # Lymphocytes 3.0 H (Manual) Lymphocytes # Monocytes # Monocytes # 0.1 L (Manual) Eosinophils # Basophils # Metamyelocytes # 0.0 Myelocytes # 0.5 H Nucleated Red Blood Cells # Platelet Estimate DECREASED Anisocytosis 1+ Microcytosis 1+ Prothrombin Time 17.4 H Prothrombin Time 1.4 Ratio INR International 1.41 Normalized Ratio Activated 76.1 *H Partial Thrombopla st Time Sodium Level 132 L Potassium Level 9.3 *H Chloride Level 88 L Carbon Dioxide 10 L Level Anion Gap 34 H Blood Urea 36 H Nitrogen Creatinine 2.33 H Est Glomerular Filtrat Rate mL/min Glucose Level 1076 *H Hemoglobin A1c 9.3 H Calcium Level 10.4 H Phosphorus Level 14.5 H Magnesium Level 2.9 H Total Bilirubin 0.3 Direct Bilirubin 0.00 Indirect Bilirubin 0.3 Aspartate Amino 662 H Transf (AST/SGOT) Alanine 563 H Aminotransferase ( ALT/SGPT) Alkaline 61 Phosphatase Troponin I 0.594 *H Total Protein 5.1 L Albumin 3.3 Globulin 1.80 Albumin/Globulin 1.83 Ratio Lipase 703 H Ethyl Alcohol < 10.0 H Level POC Venous Lactate 10.0 *H Test 03/03/19 11:00 03/03/19 12:14 03/03/19 13:52 03/03/19 13:53 Urine Color YELLOW Urine Clarity CLEAR Urine pH 5.0 Urine Specific 1.020 [place] Urine Ketones 1+ H Urine Nitrite NEGATIVE Urine Bilirubin NEGATIVE Urine Urobilinogen NEGATIVE Urine Leukocyte NEGATIVE Esterase Urine Hemoglobin NEGATIVE Urine Glucose 3+ H Urine Total NEGATIVE Protein Urine Opiates Negative Screen Urine Barbiturates Negative Urine Amphetamines Negative Screen Urine Negative Benzodiazepines Screen Urine Cocaine Negative Screen Urine Cannabinoids Negative Bedside Glucose > 595 *H Sodium Level 132 L Potassium Level 7.5 *H Chloride Level 96 L Carbon Dioxide 7 *L Level Anion Gap 29 H Blood Urea 35 H Nitrogen Creatinine 2.34 H Est Glomerular Filtrat Rate mL/min Glucose Level 982 *H Calcium Level 8.6 Phosphorus Level 13.0 H Magnesium Level 2.7 H Lactic Acid Level 13.0 *H Test 03/03/19 14:09 Bedside Glucose > 595 *H HPI/ROS Admit Date/Time Admit Date/Time Mar 03, 2019 at 11:04 Hx of Present Illness 73 yo female with DM who presented from intermediate wiht cardiac arrest. Had CPR in the field. ROSC. Recurred here x 2. When seen by me, intubated and on maximum levophed and dopamine. Daughter and bedside and son on the phone (offical health care proxy) agreed to DNR and comfort measures as soon as grandkids arrived. Say she had expressed numerous times she would not want to be kept alive on machines. Has outside DNR they say. ROS Subjective hx not possible: pt non-verbal PMH/Family/Social Past Medical History Medical History: diabetes Medications Current Medications Propofol 100 ml @ 1.8 mls/hr per protocol ONCE IV ; Start 03/03/19 at 10:30; Stop 03/05/19 at 18:03 Fentanyl 100 ml @ 2.5 mls/hr PER PROTOCOL ONCE IV ; Start 03/03/19 at 10:30; Stop 03/05/19 at 02:29 Amiodarone HCl 900 mg/Dextrose 500 ml @ 0 mls/hr Q0M IV Last administered on 03/03/19at 12:01; Admin Dose 33.3 MLS/HR; Start 03/03/19 at 11:00 Amiodarone HCl 900 mg/Dextrose 500 ml @ 0 mls/hr Q0M IV ; Start 03/03/19 at 11:00 Dopamine HCl/ Dextrose 250 ml @ 4.5 mls/hr TITRATE IV Last administered on 03/03/19at 11:00; Admin Dose 45 MLS/HR; Start 03/03/19 at 11:00 Vecuronium Venus 100 mg/ Dextrose 100 ml @ 3.24 mls/hr Q24H ONCE IV ; Start 03/03/19 at 10:50; Stop 03/04/19 at 10:49 Dextrose (D50w Syringe) ONCE PRN IV DECREASED GLUCOSE; Start 03/03/19 at 12:00 Potassium Chloride/Sodium Chloride 1,000 ml @ 0 mls/hr Q0M IV ; Start 03/03/19 at 11:31 Potassium Chloride/Dextrose/ Sod Cl 1,000 ml @ 0 mls/hr Q0M IV ; Start 03/03/19 at 11:31 Potassium Chloride/Sodium Chloride 1,000 ml @ 0 mls/hr Q0M IV ; Start 03/03/19 at 11:31 Potassium Chloride/Dextrose/ Sod Cl 1,000 ml @ 0 mls/hr Q0M IV ; Start 03/03/19 at 11:31 Sodium Chloride 1,000 ml @ 0 mls/hr Q0M IV Last administered on 03/03/19at 12:41; Admin Dose 250 MLS/HR; Start 03/03/19 at 11:31 Dextrose/Sodium Chloride 1,000 ml @ 0 mls/hr Q0M IV ; Start 03/03/19 at 11:31 Insulin Human Regular 100 unit/ Sodium Chloride 101 ml @ 5.45 mls/hr ER DKA PROTOCOL IV Last administered on 03/03/19at 12:50; Admin Dose 5.45 MLS/HR; Start 03/03/19 at 12:00 Miscellaneous Information (* Miscellaneous Pharmacy Order) HYPOGLYCEMIA TREATMENT HYPOGLYCEM PROTOCOL PRN XX .HYPOGLYCEMIA PROTOCOL; Start 03/03/19 at 12:00 Dextrose (D50w Syringe) 50 ml Q15M PRN IV .DECREASED GLUCOSE; Start 03/03/19 at 12:00 Dextrose (D50w Syringe) 25 ml Q15M PRN IV .DECREASED GLUCOSE; Start 03/03/19 at 12:00 Norepinephrine 250 ml @ 7.5 mls/hr ONCE STAT IV Last administered on 03/03/19at 11:55; Admin Dose 18.75 MLS/HR; Start 03/03/19 at 11:48; Stop 03/04/19 at 21:07 Morphine Sulfate/ Sodium Chloride 100 ml @ 5 mls/hr TITRATE IV Last administered on 03/03/19at 15:41; Admin Dose 5 MLS/HR; Start 03/03/19 at 15:00 Lorazepam (Ativan) 2 mg Q6H PRN IV AGITATION; Start 03/03/19 at 15:00 Coded Allergies: Sulfa (Sulfonamide Antibiotics) (Verified Allergy, Unknown, 03/03/19) ciprofloxacin (Verified Allergy, Unknown, 03/03/19) codeine (Verified Allergy, Unknown, 03/03/19) latex (Verified Allergy, Unknown, 03/03/19) lorazepam (Verified Allergy, Unknown, 03/03/19) strawberry (Verified Allergy, Unknown, 03/03/19) Social History Alcohol Use: none Smoking Status: Never smoker Drug Use: none Exam/Review of Systems Vital Signs Vitals Vital Signs Date Temp Pulse Resp B/P (MAP) Pulse Ox O2 O2 Flow FiO2 Time Delivery Rate 03/03/19 71 20 249/231 94 Mechanical 15:00 (237) Ventilator 03/03/19 100 14:15 03/03/19 99.2 10:25 Exam Exam Intubated Pupils blown No gag No corneal No response to noxious stimlui. No spontaneous movement All breaths controlled RRR Lungs clear anteriorly HAILEY KAY MD Mar 03, 2019 15:49
--- NOTE | 2019-03-03 18:41 | EN ---
Date/Time of Note Date/Time of Note DATE: 03/03/19 TIME: 18:40 Event Note Medicine Medicine Event Note Patient pronounced at 4:18 pm. No spontaneous respiration; no cardiac activity; pupils fixed and dilated. Family at bedside. DINH ROY MD Mar 03, 2019 18:41
== END 2019-03-03 16:18 | disposition expired ==
LOC: E/R 10:22 → ICU 11:04 → SUATTDRO 12:10
PROVIDERS: ADMIT Internal Medicine; ATTEND Internal Medicine
PROC: 5A1935Z Respiratory Ventilation, Less than 24 Consecutive Hours (ICD-10-PCS; principal; 2019-03-03)
PROC: 4A033R1 Measurement of Arterial Saturation, Peripheral, Percutaneous Approach (ICD-10-PCS; 2019-03-03)
DX: I21.A1 Myocardial infarction type 2 (principal); E11.10 Type 2 diabetes mellitus with ketoacidosis without coma; K72.00 Acute and subacute hepatic failure without coma; K85.90 Acute pancreatitis without necrosis or infection, unspecified; N17.9 Acute kidney failure, unspecified; G93.40 Encephalopathy, unspecified; G93.1 Anoxic brain damage, not elsewhere classified; I46.9 Cardiac arrest, cause unspecified; F03.90 Unspecified dementia, unspecified severity, without behavioral disturbance, psychotic disturbance, mood disturbance, and anxiety; E87.5 Hyperkalemia; I48.91 Unspecified atrial fibrillation; Z66 Do not resuscitate; Z90.710 Acquired absence of both cervix and uterus; Z79.4 Long term (current) use of insulin; Z88.2 Allergy status to sulfonamides
CPT/HCPCS: 36415; 36600; 71045; 76937; 80048; 80053; 80307; 81003; 82803; 82962; 83036; 83605; 83690; 83735; 84100; 84484; 85025; 85610; 85730; 86850; 86900; 86901; 87086; 93005; 94002; 96374; 96375; J0171; J0282; J1170; J1265; J1815; J2270; J3010; J3370; J3480; J7030; J7040; J7060; J7120